=== PATIENT | female | born 1965 | race Caucasian/White ===

== ENCOUNTER 2019-08-11 08:17 | Emergency (ER) | payer MEDICARE ==
--- NOTE | 2019-08-11 09:36 | XRAY Report ---
Reason: cough, soa Procedure Date: 08/11/2019 Accession Number: [id number] / [id number] Procedure: XR - Chest 2 View X-Ray CPT Code: 84800 Final Report FULL RESULT: EXAM: CHEST RADIOGRAPHY EXAM DATE: 08/11/2019 08:55 AM. CLINICAL HISTORY: Cough, sob. COMPARISON: None. TECHNIQUE: 2 views. FINDINGS: Lungs/Pleura: No focal opacities evident. Blunting of the left costophrenic suggesting trace effusion. No pneumothorax. Normal volumes. Mediastinum: Heart and mediastinal contours are unremarkable. Other: None. IMPRESSION: 1. No focal pulmonary opacity. Trace left pleural effusion. RADIA
--- NOTE | 2019-08-11 09:45 | ED Physician Documentation ---
PD HPI URI - Stated complaint Stated Complaint: SOA/LT SIDE PX - Chief complaint Chief Complaint: Resp - History obtained from History obtained from: Patient, Family - History of Present Illness Timing - onset: How many months ago (1) Timing duration: Months (1) Timing details: Gradual onset, Still present Associated symptoms: Nasal congestion, Rhinorrhea, Productive cough, Chest pain Contributing factors: Travel Improves by: Rest, Medication Similar symptoms before: Diagnosis (bronchitis) Recently seen: Not recently seen - Additional information Additional information: 54-year-old female with a history of microvascular heart disease has developed a cough over the past month that has been persistent and over the past 3 days she has developed some pain in the left side of her chest and the ribs. She has pain with coughing and movement. She denies any radiation of the pain. She has coughed up thick yellow phlegm. Review of Systems Constitutional: reports: Fever Eyes: denies: Decreased vision Ears: denies: Ear pain Nose: reports: Rhinorrhea / runny nose, Congestion Throat: denies: Sore throat Cardiac: reports: Chest pain / pressure. 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: Tonsil/Adenoidectomy - Present Medications Home Medications: Ambulatory Orders Medication Instructions Recorded Confirmed Azilsartan Med/Chlorthalidone 1 each PO 08/11/19 [Edarbyclor 40-12.5 mg Tablet] Azithromycin [Zithromax] 250 mg PO DAILY #6 tablet 08/11/19 Levothyroxine [Synthroid] 175 mcg PO QDAC 08/11/19 08/11/19 - Allergies Allergies/Adverse Reactions: Allergies Allergy/AdvReac Type Severity Reaction Status Date / Time bee venom protein (honey bee) Allergy Anaphylaxis Verified 08/11/19 08:28 angelina Allergy Anaphylaxis Verified 08/11/19 08:28 Sulfa (Sulfonamide Allergy Emesis Verified 08/11/19 08:28 Antibiotics) - Social History Does the pt smoke?: No Smoking Status: Never smoker Does the pt drink ETOH?: Yes Does the pt have substance abuse?: Yes Substance Use and Type: Marijuana - Immunizations Immunizations are current?: No PD ED PE NORMAL - Vitals Vital signs reviewed: Yes (normal ) - General General: Alert and oriented X 3, No acute distress, Well developed/nourished - HEENT HEENT: Atraumatic, PERRL, EOMI, Pharynx benign, Other (There is trace erythema to the TM's bilaterally with rounding of the umbo) - Neck Neck: Supple, no meningeal sign, No bony TTP - Cardiac Cardiac: RRR, No murmur - Respiratory Respiratory: No respiratory distress, Clear bilaterally - Abdomen Abdomen: Soft, Non tender - Back Back: No CVA TTP, No spinal TTP - Derm Derm: Normal color, Warm and dry, No rash - Extremities Extremities: No deformity, No edema - Neuro Neuro: Alert and oriented X 3, 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 No focal pulmonary opacity. Trace left pleural effusion.), EMP read indepedently, See rad report PD MEDICAL DECISION MAKING - ED course Complexity details: reviewed results, re-evaluated patient, considered differential, d/w patient, d/w family ED course: 54-year-old female with a cough for the past month has minimal evidence of otitis on exam she does have production of phlegm and symptoms have been present for 1 month. She is treated here in the emergency department with dexamethasone 10 mg orally we will place her on a course of azithromycin. Departure - Departure Disposition: 01 Home, Self Care Clinical Impression: Bronchitis Condition: Stable Instructions: ED Upper Resp Infec Abx Tx Follow-Up: [facility] [Provider Group] [facility] [Provider Group] Prescriptions: Azithromycin [Zithromax] 250 mg PO DAILY #6 tablet
[2019-08-11] MEDS ORDERED: CHERRY SYRUP 10 ML UDC PO ONE (09:46)
[2019-08-11] MEDS ORDERED: DEXAMETHASONE 10 MG/ML VIAL PO STA (09:46)
[2019-08-11 09:56] VITALS: BP 124/74
== END 2019-08-11 09:57 | disposition home or self-care (01) ==
LOC: ED 08:17
DX: J40 Bronchitis, not specified as acute or chronic (principal)
CPT/HCPCS: 71046; 99283; 99284; A9270

== ENCOUNTER 2019-09-10 10:01 | Emergency (ER) | payer MEDICARE ==
--- NOTE | 2019-09-10 10:26 | ED Physician Documentation ---
PD HPI HEADACHE - Stated complaint Stated Complaint: LT SIDE HEAD PX - Chief complaint Chief Complaint: Neuro - History obtained from History obtained from: Patient - History of Present Illness Timing - onset: Yesterday Timing - duration: Days (2) Timing - details: Gradual onset, Still present Pain level now: 9 Location: Front, Left Associated symptoms: No: Fever, Stiff neck, Nausea, Vomiting, Weakness, Numbness, Syncope, Vision changes Improved by: Nothing Contributing factors: No: Anticoagulated Similar symptoms before: Has not had sx before Recently seen: Not recently seen - Additional information Additional information: This is a 54-year-old woman who presents with complaints that she is had a headache for the past 2 days, started over her left eye and is gotten increasingly more severe gradually. She rates it as a 9 out of 10 and describes a "heavy" feeling to it as well as itching in the left ear and itching in the ba ck of her throat. She was seen here in August for a cough and was placed on antibiotics and a liquid steroid. She felt like the symptoms had resolved. She did not take any medications at home for the pain because she has a more holistic approach to medicine. However she is missed 2 days of work now and thought that she should be evaluated for the headache. She has not had any blurry or double vision. Denies any nasal congestion. Last night she felt hot but did not check her temperature. She has noted an abnormal taste and smell. No nausea vomiting or diarrhea. Her left foot. Was sometime the end of last month but she has been perimenopausal. Denies . 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 Review of Systems Constitutional: denies: Fever, Chills Eyes: denies: Loss of vision, Decreased vision Ears: reports: Ear pain. denies: Drainage/discharge Nose: denies: Rhinorrhea / runny nose, Congestion Throat: reports: Sore throat (Itchy) Respiratory: denies: Cough GI: denies: Nausea, Vomiting, Diarrhea : reports: Irregular menses (Perimenopausal). 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/Adenoidectomy - Present Medications Home Medications: Ambulatory Orders Medication Instructions Recorded Confirmed Azilsartan Med/Chlorthalidone 1 each PO 08/11/19 [Edarbyclor 40-12.5 mg Tablet] Azithromycin [Zithromax] 250 mg PO DAILY #6 tablet 08/11/19 Levothyroxine [Synthroid] 175 mcg PO QDAC 08/11/19 08/11/19 - Allergies Allergies/Adverse Reactions: Allergies Allergy/AdvReac Type Severity Reaction Status Date / Time bee venom protein (honey bee) Allergy Anaphylaxis Verified 09/10/19 10:09 angelina Allergy Anaphylaxis Verified 09/10/19 10:09 Sulfa (Sulfonamide Allergy Emesis Verified 09/10/19 10:09 Antibiotics) - Social History Does the pt smoke?: No Smoking Status: Never smoker Does the pt drink ETOH?: Yes Does the pt have substance abuse?: Yes - Immunizations Immunizations are current?: No PD ED PE NORMAL - Vitals Vital signs reviewed: Yes - General General: Alert and oriented X 3, No acute distress, Well developed/nourished, Other (Obese 54-year-old woman in no acute distress.) - HEENT HEENT: Atraumatic, PERRL, EOMI, Ears normal, Moist mucous membranes, Pharynx benign - Neck Neck: Supple, no meningeal sign, No adenopathy, Thyroid normal - Cardiac Cardiac: RRR, No murmur, Strong equal pulses - Respiratory Respiratory: No respiratory distress, Clear bilaterally - Derm Derm: Normal color, Warm and dry, No rash - Neuro Neuro: Alert and oriented X 3, 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, No motor deficit, No sensory deficit, Normal speech, Other (No pronator drift and [id number] intact.) - Psych Psych: Other (Patient became tearful when we discussed obtaining a CT scan.) Results - Vitals Vitals: Vital Signs - 24 hr 09/10/19 09/10/19 09/10/19 10:06 10:17 10:29 Temperature 36.6 C 36.7 C Heart Rate 72 69 Respiratory 16 18 Rate Blood Pressure 140/73 H 194/76 H 150/76 H O2 Saturation 99 98 09/10/19 12:15 Temperature 37.1 C Heart Rate 64 Respiratory 18 Rate Blood Pressure 133/73 H O2 Saturation 100 Oxygen O2 Source Room air - Rads (name of study) CT head Radiology: See rad report (neg acute) PD MEDICAL DECISION MAKING - ED course Complexity details: reviewed results, d/w patient, d/w family ED course: Toradol 60 mg given IM and she stated that her headache was down to about a 4-[address] did not show evidence of acute sinusitis. She is neurologically intact. There is no evidence of any brain mass. She has started back on her heart medications for the past week. She is referred for outpatient management and is actively seeking a local primary care provider so she does not have to fly back to where her primary provider is for evaluation. Departure - Departure Disposition: Home, Self Care Clinical Impression: Headache Qualifiers: Headache type: unspecified Headache chronicity pattern: acute headache Intractability: not intractable Qualified Code(s): R51 - Headache Condition: Good Instructions: ED Cephalgia Unspecified Follow-Up: [facility] [Provider Group] Comments: Call and arrange for outpatient follow-up locally. Return if you have increasing headache especially if associated with vomiting, dizziness or weakness in your arms or legs or facial droop.
[2019-09-10] MEDS ORDERED: KETOROLAC 60 MG/2 ML VIAL IM STA (10:27)
--- NOTE | 2019-09-10 11:24 | CT Report ---
Reason: L sided headache Procedure Date: 09/10/2019 Accession Number: [id number] / [id number] Procedure: CT - HEAD WO CPT Code: Final Report FULL RESULT: EXAM: CT HEAD EXAM DATE: 09/10/2019 10:52 AM. CLINICAL HISTORY: Headache. COMPARISON: None. TECHNIQUE: Multiaxial CT images were obtained from the foramen magnum to the vertex. Reformats: Sagittal and coronal. IV contrast: None. In accordance with CT protocol optimization, one or more of the following dose reduction techniques were utilized for this exam: automated exposure control, adjustment of mA and/or KV based on patient size, or use of iterative reconstructive technique. FINDINGS: Parenchyma: No intraparenchymal hemorrhage. No evidence of mass, midline shift, or CT findings of infarction. Bro-white differentiation is distinct. Extraaxial Spaces: Normal for age. No subdural or epidural collections identified. Ventricles: Normal in size and position. Sinuses and Orbits: Imaged paranasal sinuses, orbits, and mastoids show no significant abnormality. Bones: No evidence of fracture or calvarial defect. Other: None. IMPRESSION: Normal head CT. RADIA
[2019-09-10 12:16] VITALS: BP 133/73
== END 2019-09-10 12:44 | disposition home or self-care (01) ==
LOC: ED 10:01
DX: R51 Headache (principal)
CPT/HCPCS: 70450; 96372; 99284

== ENCOUNTER 2019-11-01 18:23 | Emergency (ER) | payer MEDICARE ==
[2019-11-01] MEDS ORDERED: ASPIRIN CHEW 81 MG TABLET PO STA (18:54)
--- NOTE | 2019-11-01 18:58 | ED Physician Documentation ---
PD HPI CHEST PAIN - Stated complaint Stated Complaint: CP - Chief complaint Chief Complaint: Cardiac - History obtained from History obtained from: Patient - History of Present Illness Timing - onset: Other (54-year-old woman who says she had a minor heart attack in 2013, but did not have coronary angiography at the time and then later in 2017 had some sort of episode and was diagnosed with microvascular heart disease, again without catheterization. Last night around 9:00 she had a 5- minute episode of severe chest pain (SSCP) with bilateral jaw tingling. She is had an ongoing cough for the last couple months which is also worse over the last couple of days and thinks she may have pulled something from coughing. She is short of breath. Denies pedal edema or calf pain. No recent travel.) Review of Systems Ten Systems: 10 systems reviewed and negative Constitutional: reports: Fatigue. denies: Fever, Chills Nose: denies: Rhinorrhea / runny nose, Congestion Throat: denies: Sore throat Cardiac: reports: Chest pain / pressure. 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 HEENT: Tonsil/Adenoidectomy - Present Medications Home Medications: Ambulatory Orders Medication Instructions Recorded Confirmed Azilsartan Med/Chlorthalidone 1 each PO 08/11/19 [Edarbyclor 40-12.5 mg Tablet] Levothyroxine [Synthroid] 175 mcg PO QDAC 08/11/19 08/11/19 guaiFENesin/CODEINE [Robitussin AC] 5 - 10 ml PO Q6H PRN #120 ml 11/01/19 - Allergies Allergies/Adverse Reactions: Allergies Allergy/AdvReac Type Severity Reaction Status Date / Time bee venom protein (honey bee) Allergy Anaphylaxis Verified 11/01/19 18:36 angelina Allergy Anaphylaxis Verified 11/01/19 18:36 Sulfa (Sulfonamide Allergy Emesis Verified 11/01/19 18:36 Antibiotics) - Social History Does the pt smoke?: No Smoking Status: Never smoker Does the pt drink ETOH?: Yes Does the pt have substance abuse?: Yes Substance Use and Type: Marijuana - Immunizations Immunizations are current?: No - POLST Patient has POLST: No PD ED PE NORMAL - Vitals Vital signs reviewed: Yes - General General: Alert and oriented X 3, No acute distress - HEENT HEENT: PERRL, EOMI - Neck Neck: Supple, no meningeal sign, No bony TTP - Cardiac Cardiac: RRR, No murmur - Respiratory Respiratory: No respiratory distress, Clear bilaterally - Abdomen Abdomen: Normal bowel sounds, Soft, Non tender - Back Back: No CVA TTP, No spinal TTP - Derm Derm: Normal color, Warm and dry - Extremities Extremities: No edema, No calf tenderness / cord - Neuro Neuro: Alert and oriented X 3, Normal speech Results - Vitals Vitals: Vital Signs - 24 hr 11/01/19 11/01/19 18:25 20:16 Temperature 36.7 C 36.8 C Heart Rate 89 74 Respiratory 18 18 Rate Blood Pressure 139/90 H 147/68 H O2 Saturation 98 98 Oxygen O2 Source Room air - EKG (time done) 1827 Rate: Rate (enter#) (89) Rhythm: NSR [place]: Normal Intervals: Normal [place] QRS: Normal Ischemia: Non specific changes Computer interpretation: Agree with computer - Labs Labs: Laboratory Tests 11/01/19 11/01/19 11/01/19 19:00 19:00 19:00 WBC 9.0 RBC 5.45 H Hgb 16.0 Hct 49.2 H MCV 90.3 MCH 29.4 MCHC 32.5 RDW 13.0 Plt Count 309 MPV 9.3 Neut # (Auto) 5.0 Lymph # (Auto) 2.9 [place] # (Auto) 0.6 Eos # (Auto) 0.4 Baso # (Auto) 0.1 Absolute Nucleated RBC 0.00 Nucleated RBC % 0.0 Sodium 137 Potassium 3.2 L Chloride 97 L Carbon Dioxide 27 Anion Gap 13.0 BUN 18 Creatinine 0.9 Estimated GFR (MDRD) 65 L Glucose 119 H Calcium 10.1 Total Bilirubin 0.6 AST 41 ALT 58 Alkaline Phosphatase 54 Troponin I High Sens 4.8 Total Protein 8.0 Albumin 4.5 Globulin 3.5 Albumin/Globulin Ratio 1.3 Lipase 23 - Rads (name of study) 2v chest Radiology: EMP read contemporaneously (NAD) PD MEDICAL DECISION MAKING - ED course ED course: 54-year-old woman with questionable cardiac history by what she is describing presents with atypical rest pain last night which is now gone. Somewhat reproducible though on exam and associated with cough. Biomarkers are negative here and she is pain-free. Discussed need for follow-up stress testing and she has an appoint with her primary care physician. Her main concern was getting something for the cough, that at this point was debilitating her more than anything else. Departure - Departure Disposition: 01 Home, Self Care Clinical Impression: Atypical chest pain Condition: Good Record reviewed to determine appropriate education?: Yes Instructions: ED Chest Pain Atypical Unkn Cause Prescriptions: guaiFENesin/CODEINE [Robitussin AC] 5 - 10 ml PO Q6H PRN #120 ml PRN Reason: Cough Comments: Return if pain recurs, take a baby aspirin a day pending follow-up. Follow-up with your new physician as scheduled, discuss stress testing referral.
[2019-11-01 19:05] LABS: BASOPHILS # (AUTO) 0.1 10^3/uL (0.0-0.1); BASOPHILS % (AUTO) 0.8 %; EOSINOPHILS # (AUTO) 0.4 10^3/uL (0.0-0.7); EOSINOPHILS % (AUTO) 4.9 %; LYMPHOCYTES # (AUTO) 2.9 10^3/uL (1.5-3.5); LYMPHOCYTES % (AUTO) 32.3 %; MEAN CORPUSCULAR HEMOGLOBIN 29.4 pg (27.0-31.0); MEAN CORPUSCULAR HGB CONC 32.5 g/dL (32.0-36.0); MEAN CORPUSCULAR VOLUME 90.3 fL (81.0-99.0); MEAN PLATELET VOLUME 9.3 fL (7.9-10.8); MONOCYTES # (AUTO) 0.6 10^3/uL (0.0-1.0); MONOCYTES % (AUTO) 6.3 %; NEUTROPHILS % (AUTO) 54.9 %; PLT - PLATELET COUNT 309 10^3/uL (130-450); RED BLOOD COUNT 5.45 10^6/uL (4.20-5.40)
[2019-11-01 19:21] LABS: ALBUMIN 4.5 g/dL (3.2-5.5); ALBUMIN/GLOBULIN RATIO 1.3 (1.0-2.2); BILIRUBIN,TOTAL 0.6 mg/dL (0.2-1.0); CALCIUM 10.1 mg/dL (8.5-10.3); CREATININE 0.9 mg/dL (0.4-1.0)
--- NOTE | 2019-11-01 20:09 | XRAY Report ---
Reason: chest pain cough Procedure Date: 11/01/2019 Accession Number: [id number] / [id number] Procedure: XR - Chest 2 View X-Ray CPT Code: 52940 Final Report FULL RESULT: EXAM: CHEST RADIOGRAPHY EXAM DATE: 11/01/2019 07:56 PM. CLINICAL HISTORY: Chest pain cough. COMPARISON: CHEST 2 VIEW 08/11/2019 8:49 AM. TECHNIQUE: 2 views. FINDINGS: Lungs/Pleura: No focal consolidation. No pleural effusion. No pneumothorax. Normal volumes. Mediastinum: Heart and mediastinal contours are normal. Other: None. IMPRESSION: No acute cardiopulmonary abnormality. RADIA
[2019-11-01 20:17] VITALS: BP 147/68
[2019-11-01] MEDS ORDERED: guaiFENesin/CODEINE 5 ML UDC PO STA (20:17)
== END 2019-11-01 20:26 | disposition home or self-care (01) ==
LOC: ED 18:23
DX: R07.89 Other chest pain (principal); R05 Cough
CPT/HCPCS: 36415; 71046; 80053; 83690; 84484; 85025; 93005; 99284; A9270

== ENCOUNTER 2021-03-19 09:23 | Emergency (ER) | payer MEDICARE ==
[2021-03-19 09:46] VITALS: BP 131/116
--- NOTE | 2021-03-19 10:01 | ED Physician Documentation ---
PD HPI UPPER EXT INJURY - Stated complaint Stated Complaint: LT ARM PX - Chief complaint Chief Complaint: Ext Problem - History obtained from History obtained from: Patient - Additonal information Additional information: She had her second Pfizer coronavirus vaccine about a week ago. She noticed a bruise in the left antecubital fossa that is painless. Worried about thrombotic disease. No history of DVT or PE. 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/Adenoidectomy - Present Medications Home Medications: Ambulatory Orders Medication Instructions Recorded Confirmed Azilsartan Med/Chlorthalidone 1 each PO 08/11/19 [Edarbyclor 40-12.5 mg Tablet] Levothyroxine [Synthroid] 175 mcg PO QDAC 08/11/19 08/11/19 guaiFENesin/CODEINE [Robitussin AC] 5 - 10 ml PO Q6H PRN #120 ml 11/01/19 - Allergies Allergies/Adverse Reactions: Allergies Allergy/AdvReac Type Severity Reaction Status Date / Time bee venom protein (honey bee) Allergy Anaphylaxis Verified 03/19/21 09:42 angelina Allergy Anaphylaxis Verified 03/19/21 09:42 Sulfa (Sulfonamide Allergy Emesis Verified 03/19/21 09:42 Antibiotics) - Social History Does the pt smoke?: No Smoking Status: Never smoker Does the pt drink ETOH?: Yes Does the pt have substance abuse?: Yes - Immunizations Immunizations are current?: No - POLST Patient has POLST: No PD ED PE NORMAL - Vitals Vital signs reviewed: Yes - General General: Alert and oriented X 3, No acute distress - HEENT HEENT: PERRL, EOMI - Neck Neck: No bony TTP - Extremities Extremities: Other (Bedside ultrasound was used to evaluate the vasculature of the left upper extremity. The cephalic vein, median cubital, basilic vein were all compressible and without evidence of thrombus. She does have a small bruise in the medial side of the left antecubital fossa measuring dime-size) - Neuro Neuro: Alert and oriented X 3, Normal speech Results - Vitals Vitals: Vital Signs - 24 hr 03/19/21 09:43 Temperature 37.1 C Heart Rate 66 Respiratory 19 Rate Blood Pressure 131/116 H O2 Saturation 100 Oxygen O2 Source Room air Departure - Departure Disposition: 01 Home, Self Care Clinical Impression: Traumatic ecchymosis of left upper arm Qualifiers: Encounter type: initial encounter Qualified Code(s): S40.022A - Contusion of left upper arm, initial encounter Condition: Good Record reviewed to determine appropriate education?: Yes Comments: As discussed there is no evidence of blood clot in the veins of the left upper extremity. Return for new or worsening symptoms.
--- OUTSIDE RECORDS SUMMARY | 2021-03-19 10:15 | EXTERNAL MEDICAL SUMMARY RPT | Continuity of Care Document ---
:1965 Demographics Phone Unavailable Preferred Language Unknown Marital Status Unknown Scientologist Affiliation Unknown Race Unknown Ethnic Group Unknown Author Organization [facility] Address [address] [phone] Phone Allergies Encounters Medications Problems Results
== END 2021-03-19 10:18 | disposition home or self-care (01) ==
LOC: ED 09:23
DX: S40.022A Contusion of left upper arm, initial encounter (principal); X58.XXXA Exposure to other specified factors, initial encounter
CPT/HCPCS: 99281

== ENCOUNTER 2021-06-22 16:19 | Outpatient (CLI) | payer MEDICARE ==
--- NOTE | 2021-06-22 23:13 | XRAY Report ---
PROCEDURE: Hips 2V BILAT INDICATIONS: PAIN IN RIGHT HIP JOINT TECHNIQUE: 2 views of the right and left hip were acquired. COMPARISON: None available FINDINGS: Bones: No acute fractures. There is malalignment pubic symphysis with slight caudal displacement of the right pubic bone. No visible pelvic ring fractures. There is mild left hip joint space loss relat bhargavi to the right.. No suspicious bony lesions. The visualized pelvic ring appears intact. Soft tissues: No suspicious soft tissue calcifications or masses. IMPRESSION: 1. Mild asymmetric left hip joint degeneration. 2. Subluxation at the pubic symphysis. Further evaluation with CT or MRI is recommended. Reviewed by: Gwen Bond MD on 06/22/2021 11:12 PM PDT Approved by: Gwen Bond MD on 06/22/2021 11:12 PM PDT Station ID: [id number]
== END 2021-06-22 16:20 | disposition home or self-care (01) ==
LOC: DI.S 16:19
PROVIDERS: ATTEND Nurse Practitioner Family
DX: M16.0 Bilateral primary osteoarthritis of hip (principal); S33.4XXA Traumatic rupture of symphysis pubis, initial encounter

== ENCOUNTER 2021-07-07 11:34 | Emergency (ER) | payer MEDICARE ==
[2021-07-07 11:47] VITALS: BP 105/87
[2021-07-07] MEDS ORDERED: DEXAMETHASONE 10 MG/ML VIAL PO STA (12:47)
[2021-07-07] MEDS ORDERED: CHERRY SYRUP 10 ML UDC PO ONE (12:47)
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
== END 2021-07-07 13:19 | disposition home or self-care (01) ==
LOC: ED 11:34
DX: M54.41 Lumbago with sciatica, right side (principal); I10 Essential (primary) hypertension; C79.81 Secondary malignant neoplasm of breast; Z08 Encounter for follow-up examination after completed treatment for malignant neoplasm; Z85.3 Personal history of malignant neoplasm of breast
CPT/HCPCS: 99282; 99284; A9270

== ENCOUNTER 2022-05-03 18:29 | Emergency (ER) | payer MEDICARE, MEDICAID ==
[2022-05-03 18:47] VITALS: BP 132/78
--- NOTE | 2022-05-03 19:17 | ED Physician Documentation ---
History of Present Illness - Stated complaint Stated Complaint: FEVER/LT ARM LUMP/NAUSEA - Chief complaint Chief Complaint: Fever - History obtained from History obtained from: Patient - History of Present Illness Timing: Today - Additonal information Additional information: 56-year-old female with history of breast cancer on monthly chemotherapy, last dose of chemo 1 week ago presents for red, itchy, swollen area on her left forearm and temperature of 99.9 at home. Patient states that she was concerned because she was told that if she had a fever she need to be seen in the ER immediately and presented for evaluation. Temperature here was within normal limits. Patient denies bites, stings, injuries to the affected area. Patient reports normal aches and pains from chemotherapy, she states that currently she feels much better than she did at home. Review of Systems Ten Systems: 10 systems reviewed and negative Constitutional: reports: Fever. denies: Chills, Myalgias GI: denies: Abdominal Pain, Abdominal Swelling Skin: reports: Rash. 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: Breast cancer : Kidney stones HEENT: Chronic vision loss Psych: Bipolar disorder Musculoskeletal: Osteoarthritis, Chronic back pain, Other Derm: None - Past Surgical History Past Surgical History: Yes General: Other /STUDENT ADMISSIONS CLERK: section, Other HEENT: Tonsil/Adenoidectomy - Present Medications Home Medications: Ambulatory Orders Medication Instructions Recorded Confirmed Levothyroxine [Synthroid] 175 mcg PO QDAC 08/11/19 04/20/22 Anastrozole 1 mg ORAL DAILY 07/07/21 04/20/22 Cyclobenzaprine [Flexeril] 10 mg PO TID PRN 6 Days #20 tablet 07/07/21 04/20/22 Loratadine [Allergy Relief] 10 mg PO DAILY 03/15/22 04/20/22 Ondansetron HCl 4 mg PO Q6H PRN 04/07/22 04/20/22 Prochlorperazine Maleate 10 mg PO Q4H PRN 04/07/22 04/20/22 [Compazine] Prochlorperazine Maleate 10 mg PO Q6H #120 tablet 04/20/22 Doxycycline Hyclate 100 mg PO BID #14 tab.sr 05/03/22 - Allergies Allergies/Adverse Reactions: Allergies Allergy/AdvReac Type Severity Reaction Status Date / Time bee venom protein (honey bee) Allergy Anaphylaxis Verified 05/03/22 18:42 angelina Allergy Anaphylaxis Verified 05/03/22 18:42 Sulfa (Sulfonamide Allergy Emesis Verified 05/03/22 18:42 Antibiotics) - Social History Does the pt smoke?: No Smoking Status: Former smoker Does the pt drink ETOH?: No Does the pt have substance abuse?: Yes - Immunizations Immunizations are current?: No - POLST Patient has POLST: No PD ED PE NORMAL - Vitals Vital signs reviewed: Yes - General General: Alert and oriented X 3, No acute distress, Well developed/nourished - HEENT HEENT: Atraumatic, PERRL, EOMI, Ears normal, Moist mucous membranes - Neck Neck: Supple, no meningeal sign, No bony TTP, No adenopathy, C-Spine cleared by NEXUS criteria - Cardiac Cardiac: RRR, No gallop, Strong equal pulses - Respiratory Respiratory: No respiratory distress, Clear bilaterally - Abdomen Abdomen: Soft, Non tender, Non distended, No organomegaly - Female Female : Deferred - Rectal Rectal: Deferred - Back Back: No CVA TTP, No spinal TTP - Derm Derm: Warm and dry, No rash, Other (SMALL 3CM DIAMETER AREA OF INDURATION, NO FLUCTUANCE MID L FOREARM) - Extremities Extremities: No deformity, No tenderness to palpate, No edema - Neuro Neuro: Alert and oriented X 3, 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 [id number] ultrasound shows small amount of cobblestoning, no definitive fluid collection to suggest abscess. Patient likely has an insect bite that she was unaware of previously, however due to her immunocompromise status as a chemotherapy patient will treat as though this is developing cellulitis. Patient counseled to apply warm compresses, take Benadryl or antiallergy pill at home as needed for pruritus. Will discharge on doxycycline since patient is a chemotherapy patient at high risk for MRSA. Patient counseled to return immediately for fever of 100.4 or higher. PCP follow-up advised. Departure - Departure Disposition: Home, Self Care Clinical Impression: Cellulitis Condition: Stable Instructions: Cellulitis Dc Prescriptions: Doxycycline Hyclate 100 mg PO BID #14 tab.sr Comments: Apply warm compresses to the affected area. You may take benadryl or an anti- allergy pill such as pepcid, zyrtec, or claritin, etc for itching. Take all antibiotics as prescribed. Return for evaluation for fever 100.4 or higher
== END 2022-05-03 19:30 | disposition home or self-care (01) ==
LOC: ED 18:29
DX: L03.114 Cellulitis of left upper limb (principal); Z87.891 Personal history of nicotine dependence; C50.919 Malignant neoplasm of unspecified site of unspecified female breast; Z79.899 Other long term (current) drug therapy
CPT/HCPCS: 99281; 99282

== ENCOUNTER 2022-05-11 10:12 | Outpatient (CLI) | payer MEDICARE, MEDICAID ==
[2022-05-11 10:47] LABS: THYROID STIMULATING HORMONE 13.49 uIU/mL (0.34-5.60)
[2022-05-11 11:22] LABS: FREE T4 (FREE THYROXINE) 0.81 ng/dL (0.58-1.64)
== END 2022-05-11 10:13 | disposition home or self-care (01) ==
LOC: LAB 10:12
PROVIDERS: ATTEND Nurse Practitioner Family
DX: E03.9 Hypothyroidism, unspecified (principal)
CPT/HCPCS: 36415; 84439; 84443

== ENCOUNTER 2022-06-07 14:03 | Outpatient (CLI) | payer MEDICARE, MEDICAID ==
--- NOTE | 2022-06-07 15:05 | Ultrasound Report ---
PROCEDURE: Duplex Ext Veins Right INDICATIONS: EDEMA OF RIGHT LOWER LEG TECHNIQUE: Real-time imaging, as well as color and pulse Doppler interrogation, were performed of the lower extr emity deep veins from the inguinal ligament to the popliteal fossa. COMPARISON: None. FINDINGS: The deep veins are normally compressible, and free of intraluminal thrombus. Color and pu lse Doppler demonstrate normal phasic intraluminal flow. There is normal augmentation response to di stal compression maneuver. In the area of interest, there is soft tissue edema. IMPRESSION: Negative for deep venous thrombosis. Cellulitis of the soft tissues in the area of inter est in the lower leg. Reviewed by: Godfrey Ceballos MD on 06/07/2022 3:04 PM PDT Approved by: Godfrey Ceballos MD on 06/07/2022 3:04 PM PDT Station ID: [id number]
== END 2022-06-07 14:04 | disposition home or self-care (01) ==
LOC: DI 14:03
PROVIDERS: ATTEND Nurse Practitioner Family
DX: L03.115 Cellulitis of right lower limb (principal); R60.0 Localized edema

== ENCOUNTER 2023-05-18 16:37 | Outpatient (CLI) | payer MEDICARE, MEDICAID ==
--- NOTE | 2023-05-18 17:49 | Ultrasound Report ---
PROCEDURE: Duplex Ext Veins Left INDICATIONS: LEFT LEG SWELLING TECHNIQUE: Real-time imaging, as well as color and pulse Doppler interrogation, were performed of the lower extr emity deep veins from the inguinal ligament to the popliteal fossa. COMPARISON: None. FINDINGS: The deep veins are normally compressible, and free of intraluminal thrombus. Color and pu lse Doppler demonstrate normal phasic intraluminal flow. There is normal augmentation response to di stal compression maneuver. IMPRESSION: No findings of deep venous thrombosis are seen. Reviewed by: Jose Jones MD on 05/18/2023 4:48 PM DARSHAN Approved by: Jose Jones MD on 05/18/2023 4:48 PM DARSHAN Station ID: [id number]
== END 2023-05-18 16:38 | disposition home or self-care (01) ==
LOC: DI 16:37
PROVIDERS: ATTEND Internal Medicine
DX: R22.42 Localized swelling, mass and lump, left lower limb (principal)

== ENCOUNTER 2023-08-02 09:13 | Outpatient (CLI) | payer MEDICARE, MEDICAID ==
[2023-08-02 14:39] LABS: BASOPHILS # (AUTO) 0.1 10^3/uL (0.0-0.1); BASOPHILS % (AUTO) 1.1 %; EOSINOPHILS # (AUTO) 0.4 10^3/uL (0.0-0.7); EOSINOPHILS % (AUTO) 4.1 %; HCT - HEMATOCRIT 41.4 % (37.0-47.0); HGB - HEMOGLOBIN 13.2 g/dL (12.0-16.0); LYMPHOCYTES # (AUTO) 1.9 10^3/uL (1.5-3.5); LYMPHOCYTES % (AUTO) 20.6 %; MEAN CORPUSCULAR HEMOGLOBIN 29.4 pg (27.0-31.0); MEAN CORPUSCULAR HGB CONC 31.9 g/dL (32.0-36.0); MEAN CORPUSCULAR VOLUME 92.2 fL (81.0-99.0); MONOCYTES # (AUTO) 0.7 10^3/uL (0.0-1.0); MONOCYTES % (AUTO) 7.4 %; NEUTROPHILS % (AUTO) 65.1 %; PLT - PLATELET COUNT 337 10^3/uL (130-450); RED BLOOD COUNT 4.49 10^6/uL (4.20-5.40); RED CELL DISTRIBUTION WIDTH 13.8 % (12.0-15.0); WHITE BLOOD COUNT 9.2 x10^3/uL (4.8-10.8)
[2023-08-02 15:06] LABS: THYROID STIMULATING HORMONE 0.54 uIU/mL (0.34-5.60)
[2023-08-02 15:50] LABS: ALBUMIN 4.2 g/dL (3.2-5.5); ALBUMIN/GLOBULIN RATIO 1.6 (1.0-2.2); BILIRUBIN,TOTAL 0.5 mg/dL (0.2-1.0); CALCIUM 10.1 mg/dL (8.5-10.3); CREATININE 0.8 mg/dL (0.6-1.3); POTASSIUM 3.4 mmol/L (3.5-4.5); TOTAL PROTEIN 6.9 g/dL (6.4-8.9)
[2023-08-02 20:32] LABS: ESTIMATED AVERAGE GLUCOSE 114 mg/dL (70-100); HEMOGLOBIN A1c% 5.6 % (4.27-6.07)
== END 2023-08-02 09:14 | disposition home or self-care (01) ==
LOC: LAB.S 09:13
PROVIDERS: ATTEND Nurse Practitioner Family
DX: C50.919 Malignant neoplasm of unspecified site of unspecified female breast (principal); R73.9 Hyperglycemia, unspecified; E03.9 Hypothyroidism, unspecified
CPT/HCPCS: 36415; 80053; 83036; 84443; 85025

== ENCOUNTER 2023-09-19 08:00 | Outpatient (CLI) | payer MEDICARE, MEDICAID | END 2023-09-19 23:59 | disposition home or self-care (01) | LOC: LAB.S 08:00 | PROVIDERS: ATTEND Registered Nurse | DX: J22 Unspecified acute lower respiratory infection (principal); R05.9 Cough, unspecified ==

== ENCOUNTER 2023-09-19 08:00 | Outpatient (CLI) | payer MEDICARE, MEDICAID ==
--- NOTE | 2023-09-19 13:36 | XRAY Report ---
PROCEDURE: Chest 2 View X-Ray INDICATIONS: COUGH TECHNIQUE: 2 views of the chest were acquired. COMPARISON: Chest x-ray 05/19/2022 FINDINGS: Surgical changes and devices: Right chest wall surgical clips.. Lungs and pleura: No pleural effusions or pneumothorax. Lungs are clear. Mediastinum: Mediastinal contours appear normal. Heart size is normal. Bones and chest wall: No suspicious bony lesions. Overlying soft tissues appear unremarkable. IMPRESSION: No acute cardiopulmonary process. Reviewed by: Umair West MD on 09/19/2023 1:35 PM PST Approved by: Umair West MD on 09/19/2023 1:35 PM PST Station ID: [id number]
== END 2023-09-19 23:59 | disposition home or self-care (01) ==
LOC: DI.S 08:00
PROVIDERS: ATTEND Registered Nurse
DX: R05.9 Cough, unspecified (principal); J22 Unspecified acute lower respiratory infection

== ENCOUNTER 2023-09-21 15:13 | Emergency (ER) | payer MEDICARE, MEDICAID ==
[2023-09-21] MEDS ORDERED: DEXAMETHASONE 10 MG/ML VIAL IVP STA ×2 (16:00→17:15)
[2023-09-21] MEDS ORDERED: SODIUM CHLORIDE 0.9% 1,000 ML IV STA (16:00)
--- NOTE | 2023-09-21 16:01 | ED Physician Documentation ---
PD HPI DYSPNEA - Stated complaint Stated Complaint: SOA/COUGH - Chief complaint Chief Complaint: Resp - History obtained from History obtained from: Patient - Additional information Additional information: 4-year-old with history of mild asthma and breast cancer on oral chemotherapy has been sick for about 2 weeks with a cough. It is nonproductive. She is wheezing and short of breath especially at night. She was seen at the walk-in clinic 2 days ago and had a chest x-ray which was negative but diagnosed with pneumonia and has been on doxycycline ever since. She was also prescribed albuterol but has not been able to fill the prescription yet. She was urged to come here fo IV fluids and a CAT scan by her primary care nurse practitioner. 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: Breast cancer : Kidney stones HEENT: Chronic vision loss Psych: Bipolar disorder Musculoskeletal: Osteoarthritis, Chronic back pain, Other Derm: None Other Past Medical History: breast Ca - Past Surgical History Past Surgical History: Yes General: Other /PHYSICAL SECURITY ENGINEER: section, Mastectomy, Other HEENT: Tonsil/Adenoidectomy - Present Medications Home Medications: Ambulatory Orders Medication Instructions Recorded Confirmed Levothyroxine [Synthroid] 200 mcg PO QDAC 08/11/19 09/21/23 Anastrozole 1 mg ORAL DAILY 07/07/21 09/21/23 Loratadine [Allergy Relief] 10 mg PO DAILY 03/15/22 09/21/23 Ondansetron HCl 4 mg PO Q6H PRN 04/07/22 09/21/23 Doxycycline Hyclate 100 mg PO BID 7 Days #14 cap 05/21/22 09/21/23 Abemaciclib [Verzenio] 50 mg ORAL BID 07/21/23 09/21/23 Albuterol Sulf [Ventolin Hfa 1 - 2 puffs INH Q4HR PRN 09/21/23 09/21/23 Inhaler] Chlorthalidone 25 mg PO DAILY 09/21/23 09/21/23 EPINEPHrine [Epinephrine] 1 each SUBQ PRN PRN 09/21/23 09/21/23 Gabapentin [Neurontin] 100 mg PO DAILY 09/21/23 09/21/23 oxyBUTYnin chloride [Oxybutynin 5 mg PO DAILY 09/21/23 09/21/23 Chloride] predniSONE [Deltasone] 20 mg PO [id number] #21 tab 09/21/23 - Allergies Allergies/Adverse Reactions: Allergies Allergy/AdvReac Type Severity Reaction Status Date / Time bee venom protein (honey bee) Allergy Anaphylaxis Verified 09/21/23 15:27 cephalexin [From Keflex] Allergy Nausea Verified 09/21/23 15:27 angelina Allergy Anaphylaxis Verified 09/21/23 15:27 Sulfa (Sulfonamide Allergy Emesis Verified 09/21/23 15:27 Antibiotics) - Social History Does the pt smoke?: No Smoking Status: Never smoker Does the pt drink ETOH?: No Does the pt have substance abuse?: Yes - Immunizations Immunizations are current?: No - POLST Patient has POLST: No PD ED PE NORMAL - Vitals Vital signs reviewed: Yes - General General: Alert and oriented X 3, No acute distress - Cardiac Cardiac: RRR, No murmur - Respiratory Respiratory: No respiratory distress, Other (Mild wheezes throughout without focal findings) - Abdomen Abdomen: Non tender - Neuro Neuro: Alert and oriented X 3 Results - Vitals Vitals: Vital Signs - 24 hr 09/21/23 09/21/23 09/21/23 15:20 16:56 18:17 Temperature 36.2 C L 37.3 C 36.6 C Heart Rate 68 62 59 L Respiratory 16 18 18 Rate Blood Pressure 145/74 H 142/90 H 155/68 H O2 Saturation 96 97 97 Oxygen O2 Source Room air - Labs Labs: Laboratory Tests 09/21/23 09/21/23 16:11 16:11 WBC 3.5 L RBC 4.71 Hgb 13.9 Hct 43.3 MCV 91.9 MCH 29.5 MCHC 32.1 RDW 14.1 Plt Count 240 MPV 9.1 Neut # (Auto) 1.4 L Lymph # (Auto) 1.5 [place] # (Auto) 0.4 Eos # (Auto) 0.2 Baso # (Auto) 0.0 Absolute Nucleated RBC 0.00 Nucleated RBC % 0.0 Sodium 138 Potassium 3.0 L Chloride 98 L Carbon Dioxide 32 Anion Gap 8.0 BUN 11 Creatinine 1.0 Estimated GFR (MDRD) 57 L Glucose 118 H Calcium 10.0 Total Bilirubin 0.4 AST 25 ALT 37 Alkaline Phosphatase 58 Total Protein 7.2 Albumin 4.3 Globulin 2.9 Albumin/Globulin Ratio 1.5 - Rads (name of study) CT Chest- reviewed and d/w pt- given copy Relevant Findings:: Final report received, EMP independent interpretation of test PD Medical Decision Making - ED course ED course: CBC showing low-grace white count. CMP unremarkable save hypokalemia repleted orally.. Given the clinical circumstances the low white count is likely from a viral etiology. She declined [employer] testing here in the emergency department. We discussed the results of the CAT scan. She already knew about the left upper lobe nodule, but is quite worried about a recurrence based on the lymph nodes. She plans to follow-up with her physician for CT PET scanning which is not unreasonable. I did discuss with her that based on lack of infiltrate she can probably safely stop the doxycycline and do steroids instead for the wheezing. Departure - Departure Disposition: 01 Home, Self Care Clinical Impression: Bronchitis Condition: Good Record reviewed to determine appropriate education?: Yes Instructions: ED Upper Resp Infec No Abx Tx Prescriptions: predniSONE [Deltasone] 20 mg PO [id number] #21 tab Comments: As discussed, the CAT scan tonight shows absolutely no evidence of pneumonia. You did have the 9 mm pulmonary nodule which per your description is probably old and some borderline lymph nodes in the chest. Seems reasonable for you to have that PET scan that you are already considering. In the meantime you can stop the doxycycline and I sent a prescription for steroids which should help with the wheezing to [facility] in [place]. Forms: PCP List
[2023-09-21 16:17] LABS: BASOPHILS % (AUTO) 1.1 %; EOSINOPHILS # (AUTO) 0.2 10^3/uL (0.0-0.7); EOSINOPHILS % (AUTO) 5.4 %; HCT - HEMATOCRIT 43.3 % (37.0-47.0); HGB - HEMOGLOBIN 13.9 g/dL (12.0-16.0); LYMPHOCYTES # (AUTO) 1.5 10^3/uL (1.5-3.5); LYMPHOCYTES % (AUTO) 42.2 %; MEAN CORPUSCULAR HEMOGLOBIN 29.5 pg (27.0-31.0); MEAN CORPUSCULAR HGB CONC 32.1 g/dL (32.0-36.0); MEAN CORPUSCULAR VOLUME 91.9 fL (81.0-99.0); MEAN PLATELET VOLUME 9.1 fL (7.9-10.8); MONOCYTES # (AUTO) 0.4 10^3/uL (0.0-1.0); MONOCYTES % (AUTO) 10.3 %; NEUTROPHILS # (AUTO) 1.4 10^3/uL (1.5-6.6); PLT - PLATELET COUNT 240 10^3/uL (130-450); RED BLOOD COUNT 4.71 10^6/uL (4.20-5.40); RED CELL DISTRIBUTION WIDTH 14.1 % (12.0-15.0); WHITE BLOOD COUNT 3.5 x10^3/uL (4.8-10.8)
[2023-09-21 17:20] LABS: ALBUMIN 4.3 g/dL (3.2-5.5); ALBUMIN/GLOBULIN RATIO 1.5 (1.0-2.2); BILIRUBIN,TOTAL 0.4 mg/dL (0.2-1.0); TOTAL PROTEIN 7.2 g/dL (6.4-8.9)
[2023-09-21] MEDS ORDERED: POTASSIUM BICARB 25 MEQ TABLET PO STA (17:24)
--- NOTE | 2023-09-21 19:05 | CT Report ---
PROCEDURE: CHEST WO INDICATIONS: cough dyspnea, neg xr TECHNIQUE: Noncontrast 1mm axial images were acquired from the pulmonary apices to the posterior costophrenic an gles. Axial 5 mm soft tissue kernel reconstructions were performed as well as 8 mm axial MIP and cor onal and sagittal 5 mm reformations. For radiation dose reduction, the following was used: automate d exposure control, adjustment of mA and/or kV according to patient size. COMPARISON: Chest x-ray 09/19/2023 FINDINGS: Image quality: Excellent. Lungs and pleura: No consolidation. No pleural effusions. No pneumothorax. Left upper lobe pulmonary nodule measuring 9 mm (). A few additional micronodules are noted. Mediastinum: Heart size is normal. No pericardial effusion. No large vessel abnormality. Prominent me diastinal lymph nodes. For example 1 cm paratracheal lymph node and aortopulmonary window lymph node () and a 1.2 cm subcarinal lymph node (/). Chest wall and lower neck: Thyroid is unremarkable. No axillary or supraclavicular adenopathy by size . Status post right mastectomy. Surgical clips are noted within the right axilla. Bones: No aggressive osseous abnormality. Degenerative changes of the spine. Upper Abdomen: Unremarkable. IMPRESSION: 1.No acute findings within the chest. 2.Left upper lobe pulmonary nodule measuring 9 mm. Per Fleischner criteria, three-month chest CT is r ecommended. 3.Prominent ascending lymph nodes measuring up to 1.2 cm. Nonspecific and metastatic disease is not e xcluded. Recommend follow-up. Reviewed by: Umair West MD on 09/21/2023 7:04 PM PST Approved by: Umair West MD on 09/21/2023 7:04 PM PST Station ID: [id number]
[2023-09-21 20:35] VITALS: BP 153/91; O2SAT 96
== END 2023-09-21 20:10 | disposition home or self-care (01) ==
LOC: ED 15:13
DX: J40 Bronchitis, not specified as acute or chronic (principal); I10 Essential (primary) hypertension; E03.9 Hypothyroidism, unspecified; I25.2 Old myocardial infarction; Z79.899 Other long term (current) drug therapy
CPT/HCPCS: 36415; 71250; 80053; 85025; 96374; 99284; A9270

== ENCOUNTER 2023-09-26 19:36 | Outpatient (CLI) | payer MEDICARE, MEDICAID ==
--- NOTE | 2023-09-26 20:56 | Ultrasound Report ---
PROCEDURE: Retroperitoneal INDICATIONS: ABD PAIN TECHNIQUE: Real-time scanning was performed of the retroperitoneal organs, with image documentation. COMPARISON: None. FINDINGS: Kidneys: Kidneys are normal in size. Right kidney measures 10.5 cm long; left kidney measures 11.7 cm long. Right renal cortical thickness is 1.0 cm; left renal cortical thickness is 1.6 cm. No lorenzo d masses, hydronephrosis, or nephrolithiasis. Cluster of simple appearing cysts are present in the s uperior aspect of the left kidney with a conglomerate measurement of approximately 9.2 cm. Bladder: Pre-void bladder volume is 418 mL. Post-void residual is 3.1 mL. Pre-void images demonstr ate no intraluminal masses or stones. On pre-void images, chelsey ureteral jets are noted with color Do ppler interrogation. (Of note, ureteral jets may not be detectable in up to 25% of cases due to insu fficient differences in specific gravity between ureteral and bladder urine). Miscellaneous: No free abdominal fluid. IMPRESSION: Cluster of simple cysts within the superior left renal pole. Reviewed by: Saritha Woody MD on 09/26/2023 8:55 PM PST Approved by: Saritha Woody MD on 09/26/2023 8:55 PM PST Station ID: [id number]
== END 2023-09-26 19:37 | disposition home or self-care (01) ==
LOC: DI 19:36
PROVIDERS: ATTEND Nurse Practitioner Family
DX: R10.9 Unspecified abdominal pain (principal); N28.1 Cyst of kidney, acquired
CPT/HCPCS: 36415; 80053; 81001; 87086

== ENCOUNTER 2023-09-26 20:38 | Outpatient (CLI) | payer MEDICARE, MEDICAID ==
[2023-09-26 21:11] LABS: ALBUMIN 4.3 g/dL (3.2-5.5); ALBUMIN/GLOBULIN RATIO 1.5 (1.0-2.2); BILIRUBIN,TOTAL 0.4 mg/dL (0.2-1.0); CALCIUM 10.6 mg/dL (8.5-10.3); POTASSIUM 3.5 mmol/L (3.5-4.5); TOTAL PROTEIN 7.2 g/dL (6.4-8.9)
== END 2023-09-26 20:39 | disposition home or self-care (01) ==
LOC: LAB 20:38
PROVIDERS: ATTEND Nurse Practitioner Family
DX: R10.9 Unspecified abdominal pain (principal)
CPT/HCPCS: 36415; 80053; 81001; 87086

== ENCOUNTER 2023-09-27 07:00 | Outpatient (CLI) | payer MEDICARE, MEDICAID ==
[2023-09-27 15:05] LABS: BILIRUBIN,URINE NEGATIVE (NEGATIVE); GLUCOSE, URINE (UA) NEGATIVE (NEGATIVE); KETONES,URINE (UA) NEGATIVE (NEGATIVE); LEUKOCYTE ESTERASE, URINE NEGATIVE (NEGATIVE); NITRITE,URINE NEGATIVE (NEGATIVE); OCCULT BLOOD,URINE NEGATIVE (NEGATIVE); PROTEIN,URINE NEGATIVE (NEGATIVE); UROBILINOGEN,URINE 0.2 (NORMAL) E.U./dL (NORMAL)
[2023-09-27 15:28] LABS: BACTERIA,URINE None Seen /HPF (None Seen); CLARITY,URINE CLEAR (CLEAR); RBC,URINE None Seen /HPF (0-5); SQUAMOUS EPITHELIAL CELL,UR FEW Squamous (<= Few); WBC,URINE 0-3 /HPF (0-5)
== END 2023-09-27 23:59 | disposition home or self-care (01) ==
LOC: LAB.S 07:00
PROVIDERS: ATTEND Nurse Practitioner Family
DX: R10.9 Unspecified abdominal pain (principal)
CPT/HCPCS: 81001; 87086

== ENCOUNTER 2024-02-28 09:43 | Outpatient (CLI) | payer MEDICARE, MEDICAID ==
[2024-02-28 14:34] LABS: BASOPHILS # (AUTO) 0.1 10^3/uL (0.0-0.1); BASOPHILS % (AUTO) 0.7 %; EOSINOPHILS # (AUTO) 0.3 10^3/uL (0.0-0.7); EOSINOPHILS % (AUTO) 3.5 %; HCT - HEMATOCRIT 47.4 % (37.0-47.0); HGB - HEMOGLOBIN 15.2 g/dL (12.0-16.0); LYMPHOCYTES # (AUTO) 1.6 10^3/uL (1.5-3.5); LYMPHOCYTES % (AUTO) 19.4 %; MEAN CORPUSCULAR HEMOGLOBIN 29.1 pg (27.0-31.0); MEAN CORPUSCULAR HGB CONC 32.1 g/dL (32.0-36.0); MEAN CORPUSCULAR VOLUME 90.6 fL (81.0-99.0); MEAN PLATELET VOLUME 10.3 fL (7.9-10.8); MONOCYTES # (AUTO) 0.5 10^3/uL (0.0-1.0); MONOCYTES % (AUTO) 6.6 %; NEUTROPHILS # (AUTO) 5.6 10^3/uL (1.5-6.6); NEUTROPHILS % (AUTO) 69.2 %; PLT - PLATELET COUNT 247 10^3/uL (130-450); RED BLOOD COUNT 5.23 10^6/uL (4.20-5.40); RED CELL DISTRIBUTION WIDTH 13.5 % (12.0-15.0); WHITE BLOOD COUNT 8.1 x10^3/uL (4.8-10.8)
[2024-02-28 14:36] LABS: BILIRUBIN,URINE NEGATIVE (NEGATIVE); GLUCOSE, URINE (UA) NEGATIVE (NEGATIVE); KETONES,URINE (UA) NEGATIVE (NEGATIVE); LEUKOCYTE ESTERASE, URINE NEGATIVE (NEGATIVE); NITRITE,URINE NEGATIVE (NEGATIVE); OCCULT BLOOD,URINE TRACE-INTA (NEGATIVE); PH,URINE 7.5 PH (5.0-7.5); PROTEIN,URINE NEGATIVE (NEGATIVE); UROBILINOGEN,URINE 0.2 (NORMAL) E.U./dL (NORMAL)
[2024-02-28 14:42] LABS: CLARITY,URINE CLEAR (CLEAR)
[2024-02-28 15:00] LABS: ALBUMIN 4.2 g/dL (3.2-5.5); ALBUMIN/GLOBULIN RATIO 1.5 (1.0-2.2); BILIRUBIN,TOTAL 0.7 mg/dL (0.2-1.0); CALCIUM 10.6 mg/dL (8.5-10.3); CREATININE 0.8 mg/dL (0.6-1.3); POTASSIUM 3.3 mmol/L (3.5-4.5)
[2024-02-28 15:20] LABS: CHOL/HDL RATIO 2.9 (<4.4); CHOLESTEROL 195 mg/dL; HDL CHOLESTEROL 67 mg/dL; LDL CHOLESTEROL,CALCULATED 108 mg/dL; LDL/HDL RATIO 1.6 (<4.4); TRIGLYCERIDES 99 mg/dL (48-352); VLDL CHOLESTEROL 20 mg/dL
[2024-02-28 15:57] LABS: THYROID STIMULATING HORMONE 0.15 uIU/mL (0.34-5.60)
[2024-02-28 20:46] LABS: ESTIMATED AVERAGE GLUCOSE 120 mg/dL (70-100); HEMOGLOBIN A1c% 5.8 % (4.27-6.07)
[2024-02-28 21:18] LABS: CHLAMYDIA TRACHOMATIS DNA NEGATIVE (NEGATIVE); NEISSERIA GONORRHOEAE DNA NEGATIVE (NEGATIVE); TRICHOMONAS VAGINALIS DNA NEGATIVE (NEGATIVE)
[2024-02-29 04:09] LABS: HIV SCREEN 4TH GENERATION Non Reactive (Non Reactive)
[2024-02-29 08:10] LABS: HBsAG SCREEN Negative (Negative); HEPATITIS B SURFACE AB QUAL Non Reactive (.); RPR Non Reactive (Non Reactive)
[2024-02-29 23:09] LABS: HCV AB Non Reactive (Non Reactive)
== END 2024-02-28 09:44 | disposition home or self-care (01) ==
LOC: LAB.S 09:43
PROVIDERS: ATTEND Nurse Practitioner Family
DX: E03.9 Hypothyroidism, unspecified (principal); E11.65 Type 2 diabetes mellitus with hyperglycemia; C50.911 Malignant neoplasm of unspecified site of right female breast; I10 Essential (primary) hypertension; Z13.220 Encounter for screening for lipoid disorders; Z11.59 Encounter for screening for other viral diseases; R35.0 Frequency of micturition; Z11.3 Encounter for screening for infections with a predominantly sexual mode of transmission
CPT/HCPCS: 36415; 80053; 80061; 81003; 83036; 84439; 84443; 85025; 86592; 86704; 86706; 86803; 87340; 87491; 87591; 87661; G0475; 81001; 83721; 87086; 87389

== ENCOUNTER 2024-03-06 10:06 | Emergency (ER) | payer MEDICARE, MEDICAID ==
--- NOTE | 2024-03-06 11:23 | ED Physician Documentation ---
PD HPI DYSPNEA - Stated complaint Stated Complaint: SOA - Chief complaint Chief Complaint: Resp - History obtained from History obtained from: Patient - Additional information Additional information: 58-year-old female presented with some right chest wall pain for the past 2 days, occasional cough, No fever or chills. Pain is nonradiating, nonexertional. She cannot identify any other alleviating or exacerbating factors. Patient has had a number of stressors recently With Diagnosis of breast cancer, she is not currently on any type of chemo or radiation but is going for A follow-up MRI tomorrow. She unfortunately has had a number of other medical and social stressors recently, being hospitalized while in [place] after getting bitten by her cat and developing a leg infection which is improved, and going through a difficult time with her . Review of Systems Constitutional: reports: Sweats Eyes: reports: Reviewed and negative Ears: reports: Foreign body Nose: reports: Congestion Throat: reports: Reviewed and negative Cardiac: reports: Chest pain / pressure Respiratory: reports: Cough. 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: Breast cancer : Kidney stones HEENT: Chronic vision loss Psych: Bipolar disorder Musculoskeletal: Osteoarthritis, Chronic back pain, Other Derm: None - Past Surgical History Past Surgical History: Yes General: Other /SELF 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 OPERATOR: section, Mastectomy, Other HEENT: Tonsil/Adenoidectomy - Present Medications Home Medications: Ambulatory Orders Medication Instructions Recorded Confirmed Levothyroxine [Synthroid] 200 mcg PO QDAC 08/11/19 09/21/23 Anastrozole 1 mg ORAL DAILY 07/07/21 09/21/23 Loratadine [Allergy Relief] 10 mg PO DAILY 03/15/22 09/21/23 Ondansetron HCl 4 mg PO Q6H PRN 04/07/22 09/21/23 Doxycycline Hyclate 100 mg PO BID 7 Days #14 cap 05/21/22 09/21/23 Abemaciclib [Verzenio] 50 mg ORAL BID 07/21/23 09/21/23 Albuterol Sulf [Ventolin Hfa 1 - 2 puffs INH Q4HR PRN 09/21/23 09/21/23 Inhaler] Chlorthalidone 25 mg PO DAILY 09/21/23 09/21/23 EPINEPHrine [Epinephrine] 1 each SUBQ PRN PRN 09/21/23 09/21/23 Gabapentin [Neurontin] 100 mg PO DAILY 09/21/23 09/21/23 oxyBUTYnin chloride [Oxybutynin 5 mg PO DAILY 09/21/23 09/21/23 Chloride] predniSONE [Deltasone] 20 mg PO [id number] #21 tab 09/21/23 LORazepam [Ativan] 1 mg PO ONCE #2 tablet 01/10/24 LORazepam [Lorazepam] 1 mg PO ONCE PRN 1 Days #2 tab 03/05/24 - Allergies Allergies/Adverse Reactions: Allergies Allergy/AdvReac Type Severity Reaction Status Date / Time bee venom protein (honey bee) Allergy Anaphylaxis Verified 03/06/24 10:37 cephalexin [From Keflex] Allergy Nausea Verified 03/06/24 10:37 angelina Allergy Anaphylaxis Verified 03/06/24 10:37 Sulfa (Sulfonamide Allergy Emesis Verified 03/06/24 10:37 Antibiotics) - Social History Does the pt smoke?: No Smoking Status: Never smoker Does the pt drink ETOH?: No Does the pt have substance abuse?: Yes Substance Use and Type: Marijuana - Immunizations Immunizations are current?: No - POLST Patient has POLST: No PD ED PE NORMAL - Vitals Vital signs reviewed: Yes - General General: Alert and oriented X 3, No acute distress, Well developed/nourished - HEENT HEENT: Atraumatic, Moist mucous membranes - Neck Neck: Supple, no meningeal sign, No JVD - Cardiac Cardiac: RRR, No murmur, Strong equal pulses - Respiratory Respiratory: No respiratory distress, Clear bilaterally - Abdomen Abdomen: Normal bowel sounds, Soft - Derm Derm: Normal color, Warm and dry, No rash - Extremities Extremities: No edema, No calf tenderness / cord - Neuro Neuro: Alert and oriented X 3 Eye Opening: Spontaneous Motor: Obeys Commands Verbal: Oriented GCS Score: 15 Results - Vitals Vitals: Vital Signs - 24 hr 03/06/24 10:45 Temperature 36.4 C L Heart Rate 75 Respiratory 20 Rate Blood Pressure 178/82 H O2 Saturation 100 Oxygen O2 Source Room air - EKG (time done) No standard instances EKG releavant findings:: EKG personally interpreted by author of this note. Relevant findings are: Rate: Rate (enter#) (60) Rhythm: NSR Intervals: Prolonged UT QRS: Normal Ischemia: Normal ST segments Compare to prior EKG: Unchanged from prior EKG Computer interpretation: Agree with computer - Labs Labs: Laboratory Tests 03/06/24 03/06/24 11:40 11:40 WBC 9.3 RBC 4.96 Hgb 14.3 Hct 45.4 MCV 91.5 MCH 28.8 MCHC 31.5 L RDW 13.3 Plt Count 248 MPV 9.4 Neut # (Auto) 6.4 Lymph # (Auto) 1.7 [place] # (Auto) 0.6 Eos # (Auto) 0.5 Baso # (Auto) 0.1 Absolute Nucleated RBC 0.00 Nucleated RBC % 0.0 Sodium 138 Potassium 3.4 L Chloride 100 L Carbon Dioxide 32 Anion Gap 6.0 BUN 14 Creatinine 0.8 Estimated GFR (MDRD) 73 L Glucose 107 H Calcium 10.2 Troponin I High Sens 4.5 - Rads (name of study) No standard instances Relevant Findings:: Final report received PD Medical Decision Making - ED course Complexity details: reviewed old records, reviewed results, re-evaluated pat ient, considered differential, d/w patient ED course: 58-year-old female who presented with right chest wall pain as well as mild shortness of breath started 2 days ago. She is well-appearing here on physical exam, afebrile nontoxic oxygenating well on room air. Her lung sounds are clear. Chest x-ray is unremarkable, EKG shows no acute ischemic changes and lab work is reassuring listed above. Lower suspicion for PE at this time given patient's reassuring vital signs and workup thus far. The patient has an MRI scheduled tomorrow for surveillance of her breast cancer and she was encouraged to maintain this visit. She will follow-up with her primary doctor as needed, return precautions reviewed if any new or worsening symptoms. Departure - Departure Disposition: 01 Home, Self Care Clinical Impression: Chest pain Qualifiers: Chest pain type: precordial pain Qualified Code(s): R07.2 - Precordial pain Condition: Good Instructions: ED Chest Pain NonCardiac Comments: Your workup today is reassuring, your heart labs and chest x-ray and EKG are stable. Please follow-up for MRI tomorrow as this will give a more detailed look at your lungs. If you develop any new or worsening symptoms, return to the ER. Forms: PCP List
[2024-03-06 11:46] LABS: BASOPHILS # (AUTO) 0.1 10^3/uL (0.0-0.1); BASOPHILS % (AUTO) 0.9 %; EOSINOPHILS # (AUTO) 0.5 10^3/uL (0.0-0.7); EOSINOPHILS % (AUTO) 5.4 %; HCT - HEMATOCRIT 45.4 % (37.0-47.0); HGB - HEMOGLOBIN 14.3 g/dL (12.0-16.0); LYMPHOCYTES # (AUTO) 1.7 10^3/uL (1.5-3.5); LYMPHOCYTES % (AUTO) 17.8 %; MEAN CORPUSCULAR HEMOGLOBIN 28.8 pg (27.0-31.0); MEAN CORPUSCULAR HGB CONC 31.5 g/dL (32.0-36.0); MEAN CORPUSCULAR VOLUME 91.5 fL (81.0-99.0); MEAN PLATELET VOLUME 9.4 fL (7.9-10.8); MONOCYTES # (AUTO) 0.6 10^3/uL (0.0-1.0); MONOCYTES % (AUTO) 6.7 %; NEUTROPHILS # (AUTO) 6.4 10^3/uL (1.5-6.6); NEUTROPHILS % (AUTO) 68.4 %; PLT - PLATELET COUNT 248 10^3/uL (130-450); RED BLOOD COUNT 4.96 10^6/uL (4.20-5.40); RED CELL DISTRIBUTION WIDTH 13.3 % (12.0-15.0); WHITE BLOOD COUNT 9.3 x10^3/uL (4.8-10.8)
[2024-03-06 12:02] LABS: CALCIUM 10.2 mg/dL (8.5-10.3); CREATININE 0.8 mg/dL (0.6-1.3); POTASSIUM 3.4 mmol/L (3.5-4.5)
[2024-03-06 12:07] LABS: TROPONIN I HIGH SENSITIVITY 4.5 ng/L (2.3-14.8)
--- NOTE | 2024-03-06 12:11 | XRAY Report ---
PROCEDURE: Chest 1V INDICATIONS: chest pain TECHNIQUE: One view of the chest was acquired. COMPARISON: CT chest 11/08/2023 FINDINGS: Surgical changes and devices: None. Lungs and pleura: No pleural effusions or pneumothorax. Lungs are clear. Mediastinum: Mediastinal contours appear normal. Heart size is enlarged. Bones and chest wall: No suspicious bony lesions. Overlying soft tissues appear unremarkable. IMPRESSION: No acute cardiopulmonary process. Reviewed by: Saritha Woody MD on 03/06/2024 12:10 PM PDT Approved by: Saritha Woody MD on 03/06/2024 12:10 PM PDT Station ID: [id number]
[2024-03-06 12:49] VITALS: BP 128/65; O2SAT 98
== END 2024-03-06 12:44 | disposition home or self-care (01) ==
LOC: ED 10:06
DX: R07.2 Precordial pain (principal); C50.919 Malignant neoplasm of unspecified site of unspecified female breast
CPT/HCPCS: 36415; 80048; 84484; 85025; 93005; 99284

== ENCOUNTER 2024-03-12 11:21 | Outpatient (CLI) | payer MEDICARE, MEDICAID ==
[2024-03-12 14:27] LABS: BILIRUBIN,URINE NEGATIVE (NEGATIVE); GLUCOSE, URINE (UA) NEGATIVE (NEGATIVE); KETONES,URINE (UA) NEGATIVE (NEGATIVE); LEUKOCYTE ESTERASE, URINE SMALL (NEGATIVE); NITRITE,URINE NEGATIVE (NEGATIVE); OCCULT BLOOD,URINE SMALL (NEGATIVE); PROTEIN,URINE NEGATIVE (NEGATIVE); UROBILINOGEN,URINE 0.2 (NORMAL) E.U./dL (NORMAL)
[2024-03-12 14:28] LABS: CLARITY,URINE CLEAR (CLEAR)
[2024-03-12 14:34] LABS: BACTERIA,URINE Few /HPF (None Seen); SQUAMOUS EPITHELIAL CELL,UR FEW Squamous (<= Few); WBC CLUMPS,URINE PRESENT
== END 2024-03-12 11:22 | disposition home or self-care (01) ==
LOC: LAB.S 11:21
PROVIDERS: ATTEND Nurse Practitioner Family
DX: R31.9 Hematuria, unspecified (principal); E03.9 Hypothyroidism, unspecified
CPT/HCPCS: 36415; 81001; 81003; 84443; 87086

== ENCOUNTER 2024-03-18 08:00 | Outpatient (CLI) | payer MEDICARE, MEDICAID ==
[2024-03-18 20:00] LABS: BILIRUBIN,URINE NEGATIVE (NEGATIVE); GLUCOSE, URINE (UA) NEGATIVE (NEGATIVE); KETONES,URINE (UA) NEGATIVE (NEGATIVE); LEUKOCYTE ESTERASE, URINE MODERATE (NEGATIVE); NITRITE,URINE NEGATIVE (NEGATIVE); OCCULT BLOOD,URINE MODERATE (NEGATIVE); PH,URINE 7.5 PH (5.0-7.5); PROTEIN,URINE NEGATIVE (NEGATIVE); UROBILINOGEN,URINE 0.2 (NORMAL) E.U./dL (NORMAL)
[2024-03-18 20:17] LABS: BACTERIA,URINE Few /HPF (None Seen); CLARITY,URINE HAZY (CLEAR); SQUAMOUS EPITHELIAL CELL,UR NONE SEEN (<= Few)
== END 2024-03-18 23:59 | disposition home or self-care (01) ==
LOC: LAB.R 08:00
PROVIDERS: ATTEND Nurse Practitioner Family
DX: R35.0 Frequency of micturition (principal)
CPT/HCPCS: 81001; 87086

== ENCOUNTER 2024-04-16 12:52 | Emergency (ER) | payer MEDICARE, MEDICAID ==
--- NOTE | 2024-04-16 13:58 | ED Physician Documentation ---
PD HPI SKIN - Stated complaint Stated Complaint: Wound - Chief complaint Chief Complaint: Wound - Additional information Additional information: 58-year-old female history of hypertension, coronary artery disease, [place], asthma, hypothyroidism, GERD, breast cancer, kidney stones, bipolar disorder, osteoarthritis presents emergency department for concerns of worsening pain in her mid sternum area where she just recently had a right mastectomy. Her surgeon is Dr. Graves with [facility] oncology and he is aware that she has an infection in her mid sternum region and she has a follow-up appointment with him as well as her primary care provider tomorrow. She says that she is having some sternal discomfort where the infection is and was told to come into the emergency department for further evaluation. No recent fevers or chills no nausea vomiting no dyspnea on exertion. 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: section, Mastectomy, Other HEENT: Tonsil/Adenoidectomy - Present Medications Home Medications: Ambulatory Orders Medication Instructions Recorded Confirmed Levothyroxine [Synthroid] 200 mcg PO QDAC 08/11/19 04/16/24 Loratadine [Allergy Relief] 10 mg PO DAILY 03/15/22 04/16/24 EPINEPHrine [Epinephrine] 1 each SUBQ PRN PRN 09/21/23 04/16/24 Gabapentin [Neurontin] 200 mg PO BID 09/21/23 04/16/24 oxyBUTYnin chloride [Oxybutynin 10 mg PO DAILY 09/21/23 04/16/24 Chloride] Amox/Clav 875/125 [Augmentin 1 tablet PO Q12H 14 Days #28 tablet 04/16/24 875/125 Tab] Anastrozole 1 mg ORAL DAILY 04/16/24 04/16/24 Chlorthalidone 25 mg ORAL DAILY 04/16/24 04/16/24 - Allergies Allergies/Adverse Reactions: Allergies Allergy/AdvReac Type Severity Reaction Status Date / Time bee venom protein (honey bee) Allergy Anaphylaxis Verified 04/16/24 13:06 cephalexin [From Keflex] Allergy Nausea Verified 04/16/24 13:06 angelina Allergy Anaphylaxis Verified 04/16/24 13:06 Sulfa (Sulfonamide Allergy Emesis Verified 04/16/24 13:06 Antibiotics) - Social History Does the pt smoke?: No Smoking Status: Never smoker Does the pt drink ETOH?: No Does the pt have substance abuse?: Yes - Immunizations Immunizations are current?: No - POLST Patient has POLST: No PD ED PE NORMAL - Vitals Vital signs reviewed: Yes - General General: Alert and oriented X 3, No acute distress, Well developed/nourished - Cardiac Cardiac: RRR - Respiratory Respiratory: No respiratory distress - Derm Derm: Normal color, Warm and dry, No rash, Other (no erythema or induration to right chest scar, no fluctuance and not warm to the touch. ) Results - Vitals Vitals: Vital Signs - 24 hr 04/16/24 04/16/24 04/16/24 12:56 13:36 15:06 Temperature 36.7 C Heart Rate 58 L 60 68 Respiratory 16 16 18 Rate Blood Pressure 149/84 H 134/66 H 132/84 H O2 Saturation 97 99 98 04/16/24 15:30 Temperature Heart Rate 72 Respiratory 18 Rate Blood Pressure 126/84 H O2 Saturation 100 Oxygen O2 Source Room air PD Medical Decision Making - ED course ED course: Spoke with pts surgical oncologist Dr. Star CHENG from [facility] and they will make pt an appt sooner rather than two months, I informed her there is not swelling no signs of infection no cellulitis to the scar of the right chest and pt denies any fever or chills, but given her mid sternum pain that pt says is topically to the scar, not deep to suggest possible ACS they suggested starting her on another course of Augmentin BID x14 days. They will follow up with her MILO and re-discuss possibly doing another operation/debriedment. Pt understand plan, all questions answered return precautions given, Tylenol given for pain, return precautions given pt safe for discharge. Augmentin sent to her preferred pharmacy. Departure - Departure Disposition: 01 Home, Self Care Clinical Impression: Post-operative complication Instructions: Amoxicillin Clavulanic Acid tablets Prescriptions: Amox/Clav 875/125 [Augmentin 875/125 Tab] 1 tablet PO Q12H 14 Days #28 tablet Comments: Thank you for trusting us with your care. As we discussed I spoke with your surgeon Dr. De Leon's MA who is going to reach out to the office to get you an appointment sooner rather than 2 months. He is recommending starting Augmentin antibiotic again you will take this twice a day for the next 14 days until you are able to follow-up with Dr. Graves. Please present back to the emergency department if you are having any shortness of breath, chest pain, nausea vomiting, fevers or chills or any other concerning symptoms. Wishing you the best in this journey! Forms: PCP List Discharge Date/Time: 04/16/24 15:29
[2024-04-16] MEDS: ACETAMINOPHEN 325 MG TABLET PO STA (15:25)
[2024-04-16 15:39] VITALS: BP 126/84; O2SAT 100
== END 2024-04-16 15:29 | disposition home or self-care (01) ==
LOC: ED 12:52
DX: G89.18 Other acute postprocedural pain (principal); R07.89 Other chest pain; I10 Essential (primary) hypertension; E03.9 Hypothyroidism, unspecified; I25.10 Atherosclerotic heart disease of native coronary artery without angina pectoris; I25.2 Old myocardial infarction; Z85.3 Personal history of malignant neoplasm of breast; Z90.11 Acquired absence of right breast and nipple; Z79.899 Other long term (current) drug therapy
CPT/HCPCS: 99282; 99284